=== PATIENT | male | born 1965 | race Caucasian/White ===

== ENCOUNTER 2017-08-22 05:29 | Day surgery (SDC) | payer OTHER ==
[~2017-08-22] VITALS: Ht 185.4 cm; Wt 129.3 kg
--- NOTE | ~2017-08-22 | O ---
[facility] [place] [address] OPERATIVE REPORT Name: BRAULIO MCGEE Room #: DEP [facility] M.R.#: [id number] Admission: 08/22/17 Attend Phys: Dameon Worthy MD Discharge: 08/22/17 Date of : 63 Report #: [id number] THIS REPORT FOR: //name// CC: Brian Ramirez DATE OF SERVICE: 08/22/[address] Dameon Worthy and Dr. Brian Alejandra. PREOPERATIVE DIAGNOSES: Right inguinal hernia and an incarcerated ventral incisional hernia. POSTOPERATIVE DIAGNOSES: Right inguinal hernia and an incarcerated ventral incisional hernia. PROCEDURE: Right inguinal hernia repair with Prolene hernia system mesh and repair of an incarcerated ventral incisional hernia. SURGEON: Dameon Worthy MD ANESTHESIA: General. DESCRIPTION OF PROCEDURE: The patient was brought to the operating room and placed on operative table in the supine position. Sequential compression devices were in place for DVT prophylaxis. There was no indication for preoperative antibiotics. The patient underwent a general endotracheal anesthesia. The abdomen and right groin area were prepped and draped in a sterile fashion. The right inguinal area was infiltrated with 0.5% Marcaine. Right inguinal skin incision was then performed using #10 scalpel blade. Hemostasis obtained using electrocautery as well as clamps and 2-0 chromic ties. Dissection was carried down through subcutaneous tissue, the external oblique fascia, which was then incised with a knife and opened with the Metzenbaum scissors. The ilioinguinal nerve was identified, dissected free, injected with the Marcaine and preserved. The cord was then dissected free, elevated and held in place with a [place] drain. Cremasteric muscle fibers were then split in the direction of their fibers using clamp and electrocautery. There was no indirect inguinal hernia sac. The floor was inspected and there was a moderate sized direct inguinal hernia defect. This was dissected free, injected with a local mixture and then opened circumferentially just above the level of the floor using the electrocautery. The hernia sac was then reduced back through the floor into the preperitoneal space, which was then developed using a blunt dissection. An extended Prolene hernia system mesh was then inserted through this opening and the underlay patch was then deployed in the preperitoneal space. The connector was left in the floor and the floor was then tightened [address] [address] OPERATIVE REPORT Name: BRAULIO MCGEE Room #: DEP [facility] [place] M.R.#: [id number] Admission: 08/22/17 Attend Phys: Dameon Worthy MD Discharge: 08/22/17 Date of : 63 Report #: [id number] around the connector using running 2-0 Prolene two-layer Shouldice repair. The overlay patch was then deployed in the inguinal canal and the overlay patch was secured to the pubic tubercle using the same running 2-0 Prolene suture. It was then secured superiorly at the connector using simple interrupted 2-0 Vicryl sutures. The mesh was split and wrapped around the cord, secured to the inguinal ligament with simple interrupted 2-0 Vicryl suture. The cord and ilioinguinal nerve were then returned to the canal intact. The external oblique fascia was then closed using running 2-0 Vicryl suture. Efraín fascia was then reapproximated using 3 simple interrupted 2-0 chromic sutures and the skin then closed with a running 4-0 subcuticular Vicryl stitch. Attention was then turned to the umbilicus. This area was infiltrated with the 0.5% Marcaine. There was a previous vertical midline periumbilical incision scar along the left side in the umbilicus and the incision was made through this area. An incarcerated hernia sac was dissected free and there was omentum incarcerated within the hernia sac. This was carefully dissected free and reduced back into the abdomen. The hernia sac was excised and discarded. This left a hole about the size of a quarter in the fascia and this was easily closed with interrupted [id number] and simple #1 Prolene sutures. The fascia, peritoneum, subcutaneous tissues were all infiltrated further with 0.5% Marcaine. The umbilicus was then tacked to the fascia using simple interrupted 2-0 chromic sutures and the subcutaneous tissue was then reapproximated using simple interrupted 2-0 chromic sutures. The skin was then closed using running 4-0 subcuticular Vicryl stitch. The wounds were then both dressed with Mastisol, 1/2-inch Steri-Strips cut in half, Telfa, 4 x 4 gauze, sponge and tape. The patient was then awakened from general anesthesia, extubated, and taken to recovery room in good condition. Estimated blood loss was approximately 10 mL total for both procedures and the patient tolerated the procedure well. All sponge, lap and instrument counts correct x 2. <ELECTRONICALLY SIGNED> By: Dameon Worthy MD 08/22/17 1613 [id number] Dameon Worthy MD /nt
[~2017-08-22 05:29] MED LIST: AMITRIPTYLINE H50 M2 PO; ASPIR 8181 MG PO; CENTRUM SILVER1 EAC2 PO; DOXYCYCLINE 10100 MG PO; FISH OIL 1,001000 M2 PO; LISINOPRIL-HCT1 EAC2 PO; METFORMIN HCL1000 MG PO; ONGLYZA5 MG PO; VENTOLIN HFA 1818 GM INH; ZOCOR20 MG PO; [UNRECOGNIZED DRUG - OTHER] PO
[2017-08-22 07:19] LABS: CALCIUM 9.1 mg/dL (8.5-10.1); CREATININE 1.2 mg/dL (0.7-1.3); POTASSIUM 3.6 mmol/L (3.5-5.1)
[2017-08-22 08:00] VITALS: BP 149/89
[2017-08-22] MEDS ORDERED: HYDROCODONE-AP1 EAC6 PO (08:37)
[2017-08-22 11:20] VITALS: BP 149/89
== END 2017-08-22 12:30 | disposition home or self-care (01) ==
LOC: OR 05:29 → TBA 05:29 → OR 07:18
PROVIDERS: Surgery
DX: K40.90 Unilateral inguinal hernia, without obstruction or gangrene, not specified as recurrent (principal); K43.0 Incisional hernia with obstruction, without gangrene; I10 Essential (primary) hypertension; E11.9 Type 2 diabetes mellitus without complications; E78.5 Hyperlipidemia, unspecified; J45.909 Unspecified asthma, uncomplicated; G47.33 Obstructive sleep apnea (adult) (pediatric); F17.210 Nicotine dependence, cigarettes, uncomplicated; Z79.899 Other long term (current) drug therapy; Z98.890 Other specified postprocedural states; Z79.82 Long term (current) use of aspirin; Z85.47 Personal history of malignant neoplasm of testis; Z79.891 Long term (current) use of opiate analgesic
CPT/HCPCS: 50010; 50101; 50386; 50417; 54111; 56524; 56525; 56526; 56528; 62110; 62900; 65131; 70005

== ENCOUNTER → 2018-01-11 | Outpatient (CLI) | payer OTHER ==
[~2018-01-11] VITALS: Ht 185.4 cm; Wt 127.0 kg
[~2018-01-11] MED LIST changes: +CARVEDILOL12.5 MG PO; +HYDROCODONE-AP1 EAC6 PO; +JARDIANCE25 MG PO
--- NOTE | ~2018-01-11 | CATHLAB ---
[facility] [address] [place] [address] INVASIVE PROCEDURE REPORT Name: ARELYBRAULIO KENNEDY [facility] [id number] Admission: 01/11/18 Attend Phys: Prabhu Casey, Discharge: Date of : 63 Date of Service: 01/11/18 0845 Report #: [id number] THIS REPORT FOR: //name// APPROVED REPORT Study performed: 01/11/2018 07:30:29 Patient Details Patient Status: Out-Patient Room #: The patient is a 53 year-old male Event Personnel Prabhu Casey Systematic Theology Professor, Brigette BandaR, Michael Wylie David Monitor, Domenic Maria doctor naturopathic Performed Left Heart Cath w/or w/o Coronaries [id number] [facility] Indication Chest pain Procedure Narrative The Right Groin^ was infiltrated with 1% Lidocaine subcutaneous anesthesia. A PINNACLE 6FR Sheath #[id number] sheath was inserted into the RFA^. Coronary angiography was performed using coronary diagnostic catheters. The right coronary system was accessed and visualized with a JR4 catheter. The left coronary system was accessed and visualized with a JL4 catheter. The left ventricle was accessed and visualized with a PIGTAIL catheter. Left ventricular/Aortic Valve gradient assessed via catheter pullback. Left ventriculogram was performed in 30 degree projection. Closure device was deployed with a 6 Fr MYNXGRIP 6/7F #[id number]. The patient tolerated the procedure well and there were no complications associated with the procedure. Intraoperative Conscious Sedation Sedation start time: 7.58 Case end Time: 8.20 Fentanyl 100 mcg Versed 2 mg Fluoro Time: 2.32 minutes Dose: DAP 5572 cGycm2 649 mGy Coronary Angiography The patient's coronary anatomy is right dominant. [facility] [address] [place] [address] INVASIVE PROCEDURE REPORT Name: BRAULIO MCGEE Room #: REG [facility]#: [id number] Admission: 01/11/18 Attend Phys: Prabhu Casey, Discharge: Date of : 63 Date of Service: 01/11/18 0845 Report #: [id number] Diagnostic Cath Left Main Normal left main LAD Normal left anterior descending extending to the apex Diagonal 1 Large, proximal diagonal branch, angiographically normal Circumflex The circumflex was large but nondominant OM1 Large, single marginal branch, angiographically normal Right Coronary Quite large, dominant right coronary with mild proximal and mid vessel plaquing (10-20%) R PDA Large posterior descending, angiographically normal RPLV Large posterior lateral branch, angiographically normal Left Ventriculography The left ventricle is mild to moderately dilated in size with abnormal contractility. The left ventricular ejection fraction is estimated to be 40%. Left ventricular wall motion abnormalities are not present. There is no mitral insufficiency. Hemodynamics The aortic pressure is 123/69 mmHg with a mean of 88 mmHg. The left ventricular pressure is 122/6 mmHg with a mean of mmHg. The left ventricular end diastolic pressure is 22 mmHg. There was no gradient across the aortic valve upon pullback. Pullback from the left ventricle to the aorta revealed no gradient across the aortic valve. Conclusion 1. Mild to moderate global left ventricular dysfunction with left ventricular enlargement. Ejection fraction 40% 2. Normal left main 3. Normal LAD and circumflex 4. Mild proximal and mid vessel dominant right coronary artery plaquing Recommendations Smoking Cessation Aggressive Medical Therapy Medications Administered LUIS Inhibitor (any) Beta Liban (any) [facility] [address] [place] [address] INVASIVE PROCEDURE REPORT Name: ARELYBRAULIO KENNEDY Room #: REG [facility]#: [id number] Admission: 01/11/18 Attend Phys: Prabhu Casey, Discharge: Date of : 63 Date of Service: 01/11/18844 Report #: [id number] Statin (any) Smoking Cessation <ELECTRONICALLY SIGNED> By: Prabhu Casey MD, [facility] 01/11/18844 4 4 Prabhu Casey MD, FACC /INF
[2018-01-11 07:12] VITALS: BP 149/85
[2018-01-11 07:22] LABS: HEMATOCRIT 45.1 % (42.0-52.0); HEMOGLOBIN 15.3 gm/dL (14.0-18.0); MCH 32.6 pg (26.0-34.0); RBC 4.7 mil/uL (4.50-6.00); RDW 15.2 % (10.5-14.5); WBC 9.4 thou/uL (4.0-11.0)
[2018-01-11 07:29] LABS: CALCIUM 9.5 mg/dL (8.5-10.1); CREATININE 1.2 mg/dL (0.7-1.3); POTASSIUM 3.9 mmol/L (3.5-5.1)
== END | disposition home or self-care (01) ==
LOC: CATH 06:34
PROVIDERS: Internal Medicine
DX: I25.10 Atherosclerotic heart disease of native coronary artery without angina pectoris (principal); I10 Essential (primary) hypertension; E78.5 Hyperlipidemia, unspecified; E11.9 Type 2 diabetes mellitus without complications; G47.33 Obstructive sleep apnea (adult) (pediatric); J45.909 Unspecified asthma, uncomplicated; E66.09 Other obesity due to excess calories; Z87.891 Personal history of nicotine dependence; Z98.890 Other specified postprocedural states; Z79.899 Other long term (current) drug therapy; Z79.82 Long term (current) use of aspirin; Z88.8 Allergy status to other drugs, medicaments and biological substances

== ENCOUNTER 2018-12-11 06:21 | Day surgery (SDC) | payer OTHER ==
[~2018-12-11] VITALS: Ht 185.4 cm; Wt 128.4 kg
--- NOTE | ~2018-12-11 | O ---
[facility] [place] [address] OPERATIVE REPORT Name: BRAULIO MCGEE Room #: 150-[facility] M.R.#: [id number] Admission: 12/11/18 ������������������ Attend Phys: Dameon Worthy MD Discharge: ������������������ Date of : 63 Report #: [id number] THIS REPORT FOR: //name// CC: BRIAN Worthy DATE OF SERVICE: 12/11/[address] Dameon Worthy and Dr. Brian Alejandra. PREOPERATIVE DIAGNOSIS: Recurrent incarcerated ventral incisional hernia. POSTOPERATIVE DIAGNOSIS: Recurrent incarcerated ventral incisional hernia. PROCEDURE: Repair of a recurrent incarcerated ventral incisional hernia with Ventralex ST hernia patch. SURGEON: Dameon Worthy MD ANESTHESIA: General. DESCRIPTION OF PROCEDURE: The patient was brought to the operating room and placed on operative table in a supine position. Sequential compression devices were in place for DVT prophylaxis. He received an appropriate preoperative dose of Ancef. The patient underwent a general endotracheal anesthesia and the abdomen was then prepped and draped in a sterile fashion. Skin and subcutaneous tissue around the previous incision of the hernia was infiltrated with 0.5% Marcaine. A vertical midline abdominal incision was performed using #10 scalpel blade. Hemostasis was obtained using electrocautery. Dissection was carried down through the subcutaneous tissue to the hernia sac, which was dissected free. Hernia sac was opened and there was incarcerated omentum within the hernia sac. This was carefully dissected free and I then excised a small portion of the omentum using clamps and 2-0 chromic ties. I also excised the hernia sac down to the fascial edges. The umbilicus was dissected off of this fascial defect as well. This left an approximately 5-cm defect. A large Ventralex ST hernia patch was then placed intraabdominally and secured circumferentially transfascially with 0 Prolene sutures. The fascia was then closed over the hernia patch using interrupted [id number] #1 PDS sutures. The tails of the mesh patch were then cut and secured superiorly and inferiorly with simple interrupted 2-0 Vicryl sutures. The area was further infiltrated with 0.5% Marcaine. The umbilicus was then tacked to the fascia using simple interrupted 2-0 chromic sutures. The deep and superficial subcutaneous tissue was then reapproximated using simple interrupted 2-0 chromic sutures. The skin was then closed using running 4-0 subcuticular Vicryl stitch. The wound was then dressed with Dermabond, Telfa, 4 x 4 gauze, sponge, and tape. The patient [address] [address] OPERATIVE REPORT Name: ARELYBRAULIO KENNEDY Room #: [address] [place] [address] M.R.#: [id number] Admission: 12/11/18 ������������������ Attend Phys: Dameon Worthy MD Discharge: ������������������ Date of : 63 Report #: [id number] was then awakened from the general endotracheal anesthesia, extubated, and taken to recovery room in good condition. Estimated blood loss was approximately 20 mL and the patient tolerated procedure well. All sponge, lap, and instrument counts correct x 2. ��������������������������������������������� ���������������������������������������� By: ��������������������������������������������� 1117 [id number] Dameon Worthy MD /nt
[~2018-12-11 06:21] MED LIST changes: +BACTRIM DS TAB1 EACH PO; +ESCITALOPRAM OX10 MG PO
[2018-12-11 07:08] LABS: CALCIUM 8.8 mg/dL (8.5-10.1); CREATININE 1.2 mg/dL (0.7-1.3); POTASSIUM 3.6 mmol/L (3.5-5.1)
[2018-12-11 07:31] VITALS: BP 125/70
[2018-12-11] MEDS ORDERED: NORCO 5-325 TA1 EAC1 PO (11:21)
[2018-12-11 11:38] VITALS: BP 125/70
== END 2018-12-11 12:20 | disposition home or self-care (01) ==
LOC: OR 06:21 → TBA 06:22 → OR 12:20
PROVIDERS: Anesthesiology
DX: K43.0 Incisional hernia with obstruction, without gangrene (principal); I10 Essential (primary) hypertension; E11.9 Type 2 diabetes mellitus without complications; J45.909 Unspecified asthma, uncomplicated; F32.9 Major depressive disorder, single episode, unspecified; E78.5 Hyperlipidemia, unspecified; G47.30 Sleep apnea, unspecified; Z98.890 Other specified postprocedural states; Z87.891 Personal history of nicotine dependence; Z85.47 Personal history of malignant neoplasm of testis; Z79.899 Other long term (current) drug therapy; Z79.82 Long term (current) use of aspirin
CPT/HCPCS: 50010; 50101; 50386; 50417; 50621; 54118; 56524; 56525; 56526; 70005

== ENCOUNTER → 2020-11-24 | Outpatient (CLI) | payer OTHER ==
[~2020-11-24] MED LIST changes: +NORCO 5-325 TA1 EAC1 PO
== END ==
LOC: SJCVCIMAG 07:15
PROVIDERS: ATTEND Internal Medicine
DX: I51.89 Other ill-defined heart diseases (principal); I25.10 Atherosclerotic heart disease of native coronary artery without angina pectoris; I42.0 Dilated cardiomyopathy; G47.33 Obstructive sleep apnea (adult) (pediatric); I10 Essential (primary) hypertension; E78.5 Hyperlipidemia, unspecified; F17.200 Nicotine dependence, unspecified, uncomplicated; E11.9 Type 2 diabetes mellitus without complications; Z72.89 Other problems related to lifestyle; Z79.82 Long term (current) use of aspirin; Z79.899 Other long term (current) drug therapy; Z85.47 Personal history of malignant neoplasm of testis